=== PATIENT | female | born 1940 | race Caucasian/White ===

== ENCOUNTER 2020-05-27 10:24 | Outpatient (CLI) | payer MEDICARE, OTHER | END 2020-05-27 10:25 | disposition home or self-care (01) | LOC: DI 10:24 | PROVIDERS: ATTEND Internal Medicine Cardiovascular Disease | DX: I51.7 Cardiomegaly (principal) | CPT/HCPCS: 93306 ==

== ENCOUNTER 2020-07-08 11:02 | Outpatient (CLI) | payer MEDICARE, OTHER ==
--- NOTE | 2020-07-08 18:21 | XRAY Report ---
PROCEDURE: Knee 3 View RT INDICATIONS: PX IN RT KNEE TECHNIQUE: 3 views of the right knee(s) were acquired. COMPARISON: None. FINDINGS: Bones: No fractures or dislocations. No suspicious bony lesions. Mild tricompartmental degenerativ e changes most prominent in the medial compartment. Soft tissues: No joint effusion. No suspicious soft tissue calcifications. IMPRESSION: Right knee without acute fracture or dislocation. Mild tricompartmental degenerative edmond nges. Reviewed by: Elieser Hernandez MD on 07/08/2020 5:20 PM AKDT Approved by: Elieser Hernandez MD on 07/08/2020 5:20 PM AKDT Station ID: [id number]
== END 2020-07-08 11:03 | disposition home or self-care (01) ==
LOC: DI.S 11:02
PROVIDERS: ATTEND Physician Assistant
DX: M17.11 Unilateral primary osteoarthritis, right knee (principal)